=== PATIENT | male | born 1985 ===

== ENCOUNTER 2017-07-10 23:57 | Emergency (ER) | payer MEDICARE, MEDICAID ==
[~2017-07-10] VITALS: Ht 185.4 cm; Wt 81.6 kg
[2017-07-11 01:01] LABS: Urine Bacteria MANY /hpf (None Seen); Urine Blood 2+ /uL (Negative); Urine Mucus FEW (None Seen); Urine Specific Gravity 1.027 (1.001-1.035); Urine WBC 891 /hpf (0 - 3)
[2017-07-11 07:08] VITALS: BP 133/73
== END 2017-07-11 08:07 | disposition home or self-care (01) ==
LOC: ER 23:59
DX: N39.0 Urinary tract infection, site not specified (principal); R36.1 Hematospermia
CPT/HCPCS: 81001